=== PATIENT | female | born 1990 | race American Indian/Alaskan Native ===

== ENCOUNTER 2017-03-19 02:01 | Emergency (ER) | payer SELFPAY ==
[2017-03-19 02:11] VITALS: BP 95/55
== END 2017-03-19 02:40 | disposition left against medical advice (07) ==
LOC: ED 02:01
DX: R42 Dizziness and giddiness (principal); R11.10 Vomiting, unspecified; Z53.21 Procedure and treatment not carried out due to patient leaving prior to being seen by health care provider

== ENCOUNTER 2017-03-28 16:09 | Inpatient (IN) | payer MEDICAID ==
[2017-03-28] MEDS ORDERED: D5LR 1,000 ML IV SCH (18:00)
[2017-03-28] MEDS: D5LR 1,000 ML IV SCH ×2 (19:37→23:57)
[2017-03-28] MEDS: REGLAN IV SCH (19:48)
[2017-03-28 19:59] LABS: Basophils % (Auto) 0.3 % (0.0-1.8); Eosinophils % (Auto) 1.4 % (0.0-4.3); Hematocrit 29.9 % (30.3-42.9); Hemoglobin 9.7 gm/dl (10.1-14.3); Mean Corpuscular HGB Conc 32 % (30-34); Mean Corpuscular Volume 71 fl (79-97); Platelet Count 209 K/mm3 (140-440); Red Blood Count 4.22 M/mm3 (3.65-5.03); Red Cell Distribution Width 16.3 % (13.2-15.2); White Blood Count 8.6 K/mm3 (4.5-11.0)
[2017-03-28] MEDS ORDERED: TRANSDERM-SCOP TD SCH (20:00)
[2017-03-28] MEDS ORDERED: SOLU MEDROL IV SCH (20:00)
[2017-03-28] MEDS ORDERED: D5W IV SCH (20:00)
[2017-03-28 20:04] LABS: Mean Corpuscular Hemoglobin 23 pg (28-32)
[2017-03-28 20:19] LABS: Amylase 153 units/L (27-131); Anion Gap 18 mmol/L; BUN/Creatinine Ratio 18; Blood Urea Nitrogen 7 mg/dL (7-17); Calcium 8.9 mg/dL (8.4-10.2); Carbon Dioxide 22 mmol/L (22-30); Glucose 83 mg/dL (65-100); Lipase 25 units/L (13-60); Potassium 3.8 mmol/L (3.6-5.0); Sodium 138 mmol/L (137-145)
[2017-03-28] MEDS ORDERED: VISTARIL PO PRN (21:34)
[2017-03-28] MEDS: ZOFRAN IV PRN (22:28)
[2017-03-29] MEDS: REGLAN IV SCH ×4 (06:03→20:57)
--- NOTE | 2017-03-29 09:00 | History and Physical Report ---
History of Present Illness Date of examination: 03/29/17 Date of admission: 03/28/17 16:09 History of present illness: 16 week history of severe hyperemesis with this and prior . Several ER admits this for same. OTC and Rx meds ineffective. Had home health with IV fluid and Reglan pump last . Seen in office 03/27 with c/o unresoved worsening symptoms, declined hospital admit, but called office on requesting admission for IV hydration. Denies vaginal bleeding or LOF, +FM. Denies N/v since admission last night, however has not attempted po. Past History Past Medical History: no pertinent history Past Surgical History: no surgical history Social history: no significant social history Medications and Allergies Allergies Allergy/AdvReac Type Severity Reaction Status Date / Time No Known Allergies Allergy Verified 03/28/17 15:55 Active Meds: Active Medications Hydroxyzine Pamoate (Vistaril) 50 mg PO Q6H PRN PRN Reason: Anxiety Dextrose/Lactated Ringer's (D5lr) 1,000 mls @ 500 mls/hr IV DIRECT TAWNYA Stop: 03/29/17 19:59 Last Admin: 03/28/17 23:57 Dose: 500 mls/hr Dextrose/Lactated Ringer's (D5lr) 1,000 mls @ 150 mls/hr IV DIRECT TAWNYA Methylprednisolone Sodium Succinate (Solu-Medrol) 100 mg IV Q8H TAWNYA Stop: 03/29/17 18:31 Last Admin: 03/29/17 06:03 Dose: 100 mg Metoclopramide HCl (Reglan) 10 mg IV Q6H TAWNYA Last Admin: 03/29/17 06:03 Dose: 10 mg Multivitamins/Iron/Calcium ( Vitamin) 1 each PO QDAY TAWNYA Ondansetron HCl (Zofran) 4 mg IV Q6H PRN PRN Reason: N/V unrelieved by Reglan Last Admin: 03/28/17 22:28 Dose: 4 mg Promethazine HCl (Phenergan) 25 mg ME Q6H TAWNYA Scopolamine (Transderm-Scop) 1 each TD Q3D TAWNYA Last Admin: 03/29/17 00:00 Dose: 1 each - Vital Signs Vital signs: Vital Signs Temp Pulse Resp BP Pulse Ox 98.1 F 77 18 105/70 100 03/28/17 20:52 03/28/17 20:52 03/28/17 20:52 03/28/17 20:52 03/28/17 20:52 Temp Pulse Resp BP Pulse Ox 98.1 F 65 18 107/56 100 03/29/17 04:47 03/29/17 04:47 03/29/17 04:47 03/29/17 04:47 03/29/17 04:47 Results Result Diagrams: 03/28/17 19:45 03/28/17 19:45 Abnormal lab results 03/28/17 03/28/17 Range/Units 19:45 19:45 Hgb 9.7 L (10.1-14.3) gm/dl Hct 29.9 L (30.3-42.9) % MCV 71 L (79-97) fl MCH 23 L (28-32) pg RDW 16.3 H (13.2-15.2) % [place] % (Auto) 8.5 H (0.0-7.3) % Creatinine 0.4 L (0.7-1.2) mg/dL Amylase 153 H (27-131) units/L All other labs normal. Assessment and Plan A: IUP at 16 weeks Severe Hyperemesis Frequent ER admits for IV hydration Overactive salivary glands P: Progress diet [facility] consult for reglan pump.
[2017-03-29] MEDS: ZOFRAN IV PRN (11:15)
[2017-03-29] MEDS: PHENERGAN PR SCH ×2 (12:42→19:42)
[2017-03-29] MEDS: PRENATAL VITAMIN PO SCH (16:38)
[2017-03-29 17:21] LABS: Bacteria,Urine 1+ /HPF (Negative); Bilirubin,Urine NEG (Negative); Blood,Urine NEG (Negative); Ketones,Urine 80 mg/dL (Negative); Leukocyte Esterase,Urine SM (Negative); Mucus,Urine 3+ /HPF; Nitrite,Urine NEG (Negative); Protein,Urine <15 mg/dL mg/dL (Negative); RBC,Urine < 1.0 /HPF (0.0-6.0); Urobilinogen,Urine < 2.0 mg/dL (<2.0)
[2017-03-30] MEDS: REGLAN IV SCH ×3 (08:03→13:39)
[2017-03-30] MEDS: PHENERGAN PR SCH (08:08)
--- NOTE | 2017-03-30 12:44 | Progress Note ---
Assessment and Plan A: IUP at 16 wks Hyperemesis much improved P: Discharge home per pt request with follow up with [facility] to begin Reglan pump on 04/02/17 Subjective - Subjective Date of service: 03/30/17 Principal diagnosis: IUP at 16 wks, Hyperemesis Interval history: Pt has not vomited since admission and would like to go home today by 3 pm because she is traveling to [place] tomorrow. Patient reports: no new complaints Objective - Vital Signs Vital Signs: Vital Signs - 12hr 03/30/17 03/30/17 04:25 09:38 Temperature 98.2 F 98.6 F Pulse Rate 62 61 Respiratory 18 18 Rate Blood Pressure 101/53 98/53 [Left] O2 Sat by Pulse 97 Oximetry - Exam Breasts: deferred Cardiovascular: Regular rate Lungs: Clear to auscultation Abdomen: Present: soft (gravid ) Uterus: Present: firm (gravid ) Extremities: normal - Labs Labs: Abnormal Labs 03/28/17 03/28/17 19:45 19:45 Hgb 9.7 L Hct 29.9 L MCV 71 L MCH 23 L RDW 16.3 H [place] % (Auto) 8.5 H Creatinine 0.4 L Amylase 153 H Laboratory Results - last 24 hr 03/29/17 03/30/17 16:30 12:15 Urine Color Yellow Urine Turbidity Clear Urine pH 6.0 Ur Specific [place] 1.020 Urine Protein <15 mg/dl Urine Glucose (UA) 50 Urine Ketones 80 25 Urine Blood Neg Urine Nitrite Neg Urine Bilirubin Neg Urine Urobilinogen < 2.0 Ur Leukocyte Esterase Sm Urine WBC (Auto) 4.0 Urine RBC (Auto) < 1.0 U Epithel Cells (Auto) 9.0 Urine Bacteria (Auto) 1+ Urine Mucus 3+
--- NOTE | 2017-03-30 12:46 | Discharge Summary ---
Providers - Providers Date of Admission: 03/28/17 16:09 Date of discharge: 03/30/17 Attending physician: JOEL ROWLEY MD 03/28/17 Consult to Case Management [CONS] Routine Services Needed at Discharge: Home Health Services Comment:: contact [facility] for reglan pump Primary care physician: JOEL ROWLEY MD Hospitalization Reason for admission: other (Hyperemesis, IUP at 16 wks ) Procedure details: IV hydration and antiemetics Discharge diagnosis: other (IUP at 16 wks, hyperemesis ) Hospital course: Patient was admitted secondary to severe hyperemesis at 16 weeks. She received IV hydration and IV antiemetics. She has had no vomiting since admission. She' ll be discharged on by mouth Reglan per patient preference will follow-up with [facility] for Reglan pump on 04/02/2017. She'll follow up in the office next week as well with Radha Paula. Condition at discharge: Stable Disposition: DC-01 TO HOME OR SELFCARE - Discharge Diagnoses (1) Hyperemesis affecting , antepartum Status: Acute (2) Status: Acute Qualifiers: Weeks of gestation: 16 weeks Qualified Code(s): Z3A.16 - 16 weeks gestation of Plan - Discharge Medications Prescriptions: Metoclopramide [Reglan] 10 mg PO TID PRN #90 tab PRN Reason: Nausea And Vomiting - Provider Discharge Summary Activity: routine Diet: routine Instructions: routine Additional instructions: [] Smoking cessation referral if applicable(refer to patient education folder for contact #) [] Refer to [facility] Booklet Call your doctor immediately for: * Fever > 100.5 * Heavy vaginal bleeding ( >1 pad per hour) * Severe persistent headache * Shortness of breath * Reddened, hot, painful area to leg or breast * Drainage or odor from incision. * Keep incision clean and dry at all times and follow doctor's instructions regarding bathing/showering - Follow up plan Follow up: RADHA PAULA CNM [Advanced Practice Nurse] - 7 Days
[2017-03-30 13:01] VITALS: BP 109/67
[2017-03-30] MEDS: PRENATAL VITAMIN PO SCH (13:39)
== END 2017-03-30 13:50 | disposition home or self-care (01) | DRG 781 ==
LOC: OB 16:09
PROVIDERS: ADMIT Obstetrics & Gynecology; ATTEND Obstetrics & Gynecology
DX: O21.1 Hyperemesis gravidarum with metabolic disturbance (principal); Z3A.16 16 weeks gestation of pregnancy
CPT/HCPCS: 36415; 80048; 80074; 81001; 82010; 82150; 83690; 84443; 85025; J2405; J2765; J2930; J7121; Q0177

== ENCOUNTER 2017-09-05 04:03 | Inpatient (IN) | payer MEDICAID ==
[2017-09-05] MEDS ORDERED: BRETHINE IVP PRN (04:07)
[2017-09-05] MEDS ORDERED: ePHEDrine SULFATE IV PRN ×2 (04:07→06:30)
[2017-09-05] MEDS ORDERED: MINERAL OIL PO PRN (04:07)
[2017-09-05] MEDS ORDERED: BRETHINE SUB-Q PRN (04:07)
[2017-09-05] MEDS ORDERED: PFIZERPEN 5 MIL.UNITS in NACL 0.9% 50 ML IV ONE (04:07)
[2017-09-05] MEDS ORDERED: XYLOCAINE 2% INFILTRATI ONE (04:07)
[2017-09-05] MEDS ORDERED: POLYCILLIN/NS 2 GM/100 ML 2 GM/100 ML BAG IV ONE ×2 (04:32→04:39)
[2017-09-05] MEDS ORDERED: SUBLIMAZE ONE (04:39)
[2017-09-05] MEDS ORDERED: SUBLIMAZE IV ONE (04:41)
[2017-09-05] MEDS: LACTATED RINGERS 1,000 ML IV SCH ×3 (04:45→10:08)
[2017-09-05 04:50] LABS: Hemoglobin 10.9 gm/dl (10.1-14.3); Mean Corpuscular HGB Conc 33 % (30-34); Mean Corpuscular Volume 70 fl (79-97); Platelet Count 169 K/mm3 (140-440); Red Cell Distribution Width 15.7 % (13.2-15.2)
[2017-09-05 04:52] LABS: Mean Corpuscular Hemoglobin 23 pg (28-32)
--- NOTE | 2017-09-05 04:57 | History and Physical Report ---
History of Present Illness Date of examination: 09/05/17 Date of admission: 09/05/17 04:03 Chief complaint: contractions History of present illness: This is a 27 yo at 39+4 weeks EDC based on LMP 09/08/17. Patient came in c/o contractions and was noted to be 4 cm and changed to 6-7cm. She is a patient of [facility] at 14 weeks. OB problem list include hx of c/sec for arrest of dilation. 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 Dx with IUGR 8% and AC3%. She is admitted and consents signed for . 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 denies: smoking, alcohol abuse, prescription drug abuse - Obstetrical History Expected Date of Delivery: 09/08/17 Actual Gestation: 39 Week(s) 4 Day(s) : 2 Para: 1 Hx # Term Pregnancies: 1 Number of Pregnancies: 0 Spontaneous Abortions: 0 Induced : 0 Number of Living Children: 1 Medications and Allergies Allergies Allergy/AdvReac Type Severity Reaction Status Date / Time No Known Allergies Allergy Verified 03/28/17 15:55 Home Medications Medication Instructions Recorded Confirmed Last Taken Type Metoclopramide [Reglan] 10 mg PO TID PRN #90 tab 03/30/17 Unknown Rx Active Meds: Active Medications Ephedrine Sulfate (Ephedrine Sulfate) 10 mg IV Q2M PRN PRN Reason: Hypotension Lactated Ringer's (Lactated Ringers) 1,000 mls @ 125 mls/hr IV DIRECT TAWNYA Last Admin: 09/05/17 04:45 Dose: 125 mls/hr Oxytocin/Sodium Chloride (Pitocin/Ns 20 Unit/1000ml Drip) 20 units in 1,000 mls @ 125 mls/hr IV DIRECT TAWNYA Ampicillin Sodium (Polycillin/Ns 2 Gm/100 Ml) 2 gm in 100 mls @ 100 mls/hr IV ONCE ONE Stop: 09/05/17 05:38 Mineral Oil (Mineral Oil) 30 ml PO QHS PRN PRN Reason: Constipation Terbutaline Sulfate (Brethine) 0.25 mg SUB-Q ONCE PRN PRN Reason: Hyperstimulation/Hypertonicity Terbutaline Sulfate (Brethine) 0.25 mg IVP ONCE PRN PRN Reason: Hyperstimulation/Hypertonicity Review of Systems All systems: negative Genitourinary: contractions - Vital Signs Vital signs: Vital Signs Temp Pulse Resp BP Pulse Ox 98.4 F 78 18 126/87 100 09/05/17 04:03 09/05/17 04:03 09/05/17 04:03 09/05/17 04:03 09/05/17 04:03 Temp Pulse Resp BP Pulse Ox 98.4 F 78 18 126/87 100 09/05/17 04:03 09/05/17 04:03 09/05/17 04:44 09/05/17 04:03 09/05/17 04:03 - Physical Exam Breasts: Positive: normal Cardiovascular: Regular rate, Normal S1 Lungs: Positive: Clear to auscultation, Normal air movement Abdomen: Positive: normal appearance, soft, normal bowel sounds. Negative: distention, tenderness, guarding Genitourinary (Female): Positive: normal external genitalia, normal perenium Vulva: both: normal Vagina: Positive: normal moisture Uterus: Positive: normal size, normal contour Extremities: Positive: normal Deep Tendon Reflex Grade: Normal +2 - Obstetrical FHR: category 1 Cervical Dilatation: 4 Uterine Contraction Pattern: Irregular Uterine Tone Measurement Phase: Contraction Uterine Contraction Intensity: Mild Results Result Diagrams: 09/05/17 04:20 Abnormal lab results 09/05/17 Range/Units 04:20 WBC 11.9 H (4.5-11.0) K/mm3 MCV 70 L (79-97) fl MCH 23 L (28-32) pg RDW 15.7 H (13.2-15.2) % All other labs normal. Assessment and Plan A/P IUP 39+4 weeks, previous c/sec /desires GBS +- abx in labor IUGR close monitor of fetus and maternal status offer epidural consents signed of r/b/a of procedure reviewed
[2017-09-05] MEDS ORDERED: PITOCin/NS 20 UNIT/1000ML DRIP 20 UNITS/1,000 ML BAG IV SCH (05:00)
[2017-09-05] MEDS ORDERED: NARCAN 2 MG/2 ML IV PRN (06:30)
--- NOTE | 2017-09-05 06:34 | Anesthesia Consultation ---
Anesthesia Consult and Med Hx Date of service: 09/05/17 - Airway Anesthetic Teeth Evaluation: Good ROM Head & Neck: Adequate Mental/Hyoid Distance: Adequate Mallampati Class: Class II - Pulmonary Exam CTA: Yes - Cardiac Exam Cardiac Exam: RRR - Pre-Operative Health Status ASA Pre-Surgery Classification: ASA2 Proposed Anesthetic Plan: Epidural, Spinal - Pulmonary Hx Smoking: No Hx Asthma: No COPD: No Hx Pneumonia: No - Cardiovascular System Hx Hypertension: No Hx Heart Attack/AMI: No - Central Nervous System Hx Seizures: No Hx Psychiatric Problems: No - Endocrine Hx Renal Disease: No Hx End Stage Renal Disease: No Hx Hypothyroidism: No Hx Hyperthyroidism: No - Hematic Hx Anemia: Yes Hx Sickle Cell Disease: No - Other Systems Hx Alcohol Use: No Hx Cancer: No
[2017-09-05] MEDS: fentaNYL-BUPIV 2 MCG/ML-0.125% 200 MCG/100 ML BAG EPIDURAL SCH ×2 (07:12→12:03)
[2017-09-05] MEDS ORDERED: ZOFRAN IV PRN ×2 (07:18→14:07)
[2017-09-05] MEDS ORDERED: PITOCin/NS 30 UNIT/500ML 30 UNITS/500 ML BAG IV SCH ×2 (08:30→09:00)
[2017-09-05] MEDS ORDERED: AMPICILLIN/NS 1 GM/50 ML 1 GM/50 ML BAG IV SCH (09:00)
[2017-09-05] MEDS ORDERED: XYLOCAINE MPF 2% ONE (09:13)
--- NOTE | 2017-09-05 13:42 | Procedure Note ---
OB Delivery Note - Delivery Date of Delivery: 09/05/17 (5-3oz female @ 1323) Surgeon: DEREK STATON Estimated blood loss: 200cc - Vaginal Delivery presentation: vertex Delivery position: OA Intrapartum events: none Delivery induction: AROM Delivery augmentation: rupture of membranes, pitocin Delivery monitor: external FHT, external uterine, internal FHT, internal uterine Route of delivery: Delivery placenta: spontaneous, other (to pathology) Delivery cord: 3 umbilical vessels Delivery laceration: 1st degree (left labial) Delivery repair: vicryl (3.[address]) Anesthesia: epidural - Infant A at 1 minute: 8 at 5 minutes: 9 Infant Gender: Female ( viable female in OA positiion. NICU called, present for delivery. Spont. lusty cry. Placed skin to skin. Spont. placenta, bleeding scant. Pitocin infusing. Left laceration repaired. Hemostatis. Placenta to pathology.)
[2017-09-05] MEDS ORDERED: DULCOLAX PR PRN (14:07)
[2017-09-05] MEDS ORDERED: LANSINOH TP PRN (14:07)
[2017-09-05] MEDS ORDERED: TYLENOL PO PRN (14:07)
[2017-09-05] MEDS ORDERED: PHENERGAN PR PRN (14:07)
[2017-09-05] MEDS ORDERED: MILK OF MAGNESIA PO PRN (14:07)
[2017-09-05] MEDS ORDERED: TUCKS PAD TP PRN (14:07)
[2017-09-05] MEDS ORDERED: BENADRYL PO PRN (14:07)
[2017-09-05] MEDS: MOTRIN PO SCH ×2 (14:44→21:05)
[2017-09-05] MEDS ORDERED: SODIUM CHLORIDE FLUSH SYRINGE 10 ML IV NR (15:00)
[2017-09-06 02:47] LABS: Hematocrit 27.4 % (30.3-42.9); Hemoglobin 9.1 gm/dl (10.1-14.3)
[2017-09-06] MEDS: MOTRIN PO SCH ×4 (04:17→21:40)
--- NOTE | 2017-09-06 08:03 | Progress Note ---
Assessment and Plan A: PPD#1 s/p , Asymptomatic anemia P: Routine care. Anticipate discharge tomorrow. Subjective - Subjective Date of service: 09/06/17 Principal diagnosis: s/p at term Interval history: No overnight events Patient reports: appetite normal, voiding normally, pain well controlled, ambulating normally : doing well, bottle feeding Objective - Vital Signs Latest vital signs: Vital Signs Temp Pulse Resp BP BP Pulse Ox 09/06/17 05:09 14 09/06/17 04:17 16 09/06/17 01:20 98.4 F 61 18 112/64 09/05/17 22:05 20 09/05/17 21:05 18 09/05/17 19:45 98.8 F 60 18 102/64 09/05/17 15:09 62 137/78 09/05/17 14:55 63 128/73 09/05/17 14:39 57 L 135/78 09/05/17 14:25 71 131/73 09/05/17 14:09 57 L 153/73 09/05/17 13:55 82 144/83 09/05/17 13:40 58 L 140/70 09/05/17 13:34 69 142/82 09/05/17 13:19 58 L 126/85 09/05/17 13:07 57 L 144/81 09/05/17 12:37 74 130/86 09/05/17 12:27 56 L 136/79 09/05/17 12:18 65 141/96 09/05/17 12:07 58 L 125/83 09/05/17 11:57 56 L 124/73 09/05/17 11:47 52 L 130/73 09/05/17 11:38 64 115/80 09/05/17 11:25 57 L 140/87 09/05/17 11:23 57 L 131/82 09/05/17 11:21 54 L 129/80 09/05/17 11:19 82 130/78 09/05/17 11:17 70 127/81 09/05/17 11:15 76 124/82 09/05/17 10:54 74 140/74 09/05/17 10:22 58 L 129/75 09/05/17 10:16 97.0 F L 09/05/17 10:10 81 121/65 09/05/17 09:53 94 H 175/102 09/05/17 09:25 75 128/71 09/05/17 09:23 76 127/62 09/05/17 08:54 77 127/86 09/05/17 08:44 88 99 09/05/17 08:39 77 100 09/05/17 08:34 75 100 09/05/17 08:29 77 99 09/05/17 08:24 80 99 09/05/17 08:19 79 99 09/05/17 08:14 74 99 09/05/17 08:13 80 112/58 09/05/17 08:09 99 H 100 Intake and Output 09/05/17 09/06/17 09/06/17 22:59 06:59 14:59 Intake Total 360 720 Output Total 1000 800 Balance -640 -80 Intake: Oral 360 Intake, Free Water 720 Output: Urine 1000 800 Void 1000 800 Other: Total, Intake Amount 360 Total, Output Amount 600 400 # Voids Void 1 - Exam Breasts: Present: deferred Cardiovascular: Present: Regular rate Lungs: Present: Clear to auscultation Abdomen: Present: soft Uterus: Present: fundal height at umbilicus Extremities: Present: normal - Labs Labs: Abnormal lab results 09/06/17 Range/Units 01:58 Hgb 9.1 L (10.1-14.3) gm/dl Hct 27.4 L (30.3-42.9) %
[2017-09-06] MEDS ORDERED: DERMOPLAST TP PRN (08:06)
[2017-09-06] MEDS ORDERED: BOOSTRIX IM ONE (10:00)
[2017-09-06] MEDS: PRENATAL VITAMIN PO SCH (10:51)
[2017-09-06] MEDS ORDERED: M-M-R II VACCINE SUB-Q ONE (14:07)
[2017-09-06] MEDS: NORCO 5/325 PO PRN (21:45)
[2017-09-07] MEDS: MOTRIN PO SCH ×2 (06:55→13:26)
[2017-09-07] MEDS: NORCO 5/325 PO PRN (09:33)
[2017-09-07 10:28] VITALS: BP 104/61
--- NOTE | 2017-09-07 11:44 | Progress Note ---
Assessment and Plan A: PPD#2 s/p , Asymptomatic anemia P: Discharge today with laceration follow up per pt request in two weeks with Radha Paula. Subjective - Subjective Date of service: 09/07/17 Principal diagnosis: s/p at term Interval history: No overnight events. Pt want to go home today. Patient reports: appetite normal, voiding normally, pain well controlled, ambulating normally : doing well Objective - Vital Signs Latest vital signs: Vital Signs Temp Pulse Resp BP BP Pulse Ox 09/07/17 09:33 20 09/07/17 09:30 98.3 F 18 L 18 104/61 99 09/06/17 21:24 98.4 F 85 17 107/75 99 09/06/17 16:24 97.8 F 68 20 113/70 100 - Exam Breasts: Present: deferred Cardiovascular: Present: Regular rate Lungs: Present: Clear to auscultation Abdomen: Present: soft Uterus: Present: fundal height below umbilicus Extremities: Present: normal
--- NOTE | 2017-09-07 11:45 | Discharge Summary ---
Providers - Providers Date of Admission: 09/05/17 04:03 Date of discharge: 09/07/17 Attending physician: JOEL ROWLEY MD Primary care physician: JOEL ROWLEY MD Hospitalization Reason for admission: active labor Delivery: Procedure details: Please see delivery note. Episiotomy: none Laceration: 1st degree Other procedures: none complications: none Discharge diagnosis: IUP at term delivered baby: female Hospital course: Patient was admitted in active labor and went on to have a vaginal after section which she tolerated well. The remainder of her course was uncomplicated and she met discharge criteria on day #2. She will follow up in 2 weeks for a laceration check with Radha Paula per patient request. Condition at discharge: Stable Disposition: DC-01 TO HOME OR SELFCARE - Discharge Diagnoses (1) Term of female Status: Acute (2) Anemia Status: Acute Qualifiers: Anemia type: unspecified type Qualified Code(s): D64.9 - Anemia, unspecified Plan - Discharge Medications Prescriptions: Ferrous Sulfate [Feosol 325 MG tab] 325 mg PO BID #60 tablet HYDROcodone/APAP 5-325 [[place] 5/325] 1 each PO Q6HR PRN #20 tablet PRN Reason: Pain Ibuprofen 600 mg PO Q6H PRN #30 tablet PRN Reason: Pain - Provider Discharge Summary Activity: routine, no sex for 6 weeks, no heavy lifting 4 weeks, no strenuous exercise Diet: routine Instructions: routine Additional instructions: [] Smoking cessation referral if applicable(refer to patient education folder for contact #) [] Refer to [facility] Booklet Call your doctor immediately for: * Fever > 100.5 * Heavy vaginal bleeding ( >1 pad per hour) * Severe persistent headache * Shortness of breath * Reddened, hot, painful area to leg or breast * Drainage or odor from incision. * Keep incision clean and dry at all times and follow doctor's instructions regarding bathing/showering - Follow up plan Follow up: RADHA PAULA CNM [Advanced Practice Nurse] - 09/19/17 (laceration check ( incision check) please call for appt )
[2017-09-07] MEDS: PRENATAL VITAMIN PO SCH (11:57)
== END 2017-09-07 17:00 | disposition home or self-care (01) | DRG 775 ==
LOC: LD 04:03 → OB 16:17
PROVIDERS: ADMIT Obstetrics & Gynecology; ATTEND Obstetrics & Gynecology
PROC: 0HQ9XZZ Repair Perineum Skin, External Approach (ICD-10-PCS; principal; 2017-09-05)
PROC: 10E0XZZ Delivery of Products of Conception, External Approach (ICD-10-PCS; principal; 2017-09-05)
PROC: 10907ZC Drainage of Amniotic Fluid, Therapeutic from Products of Conception, Via Natural or Artificial Opening (ICD-10-PCS; 2017-09-05)
PROC: 3E0R3BZ Introduction of Anesthetic Agent into Spinal Canal, Percutaneous Approach (ICD-10-PCS; 2017-09-05)
PROC: 00HU33Z Insertion of Infusion Device into Spinal Canal, Percutaneous Approach (ICD-10-PCS; 2017-09-05)
PROC: 3E0234Z Introduction of Serum, Toxoid and Vaccine into Muscle, Percutaneous Approach (ICD-10-PCS; 2017-09-06)
DX: O36.5930 Maternal care for other known or suspected poor fetal growth, third trimester, not applicable or unspecified (principal); Z3A.39 39 weeks gestation of pregnancy; Z37.0 Single live birth; Z23 Encounter for immunization; O99.824 Streptococcus B carrier state complicating childbirth; O70.0 First degree perineal laceration during delivery; O99.02 Anemia complicating childbirth; D64.9 Anemia, unspecified
CPT/HCPCS: 36415; 85014; 85018; 85027; 86592; 86850; 86900; 86901; 88305; 88307; J0290; J2405; J2540; J2590; J3010; J7120